=== PATIENT | female | born 1930 | race Caucasian/White ===

== ENCOUNTER 2017-08-23 22:18 | Observation (INO) | payer MEDICARE, OTHER ==
[~2017-08-23] VITALS: Ht 152.4 cm; Wt 81.8 kg
[2017-08-23 22:25] VITALS: BP 167/75; PULSE 59; RESP 16; TEMP 98; O2SAT 96
[2017-08-23] MEDS ORDERED: DONE10TA7 PO (22:49)
[2017-08-23] MEDS ORDERED: ATOR20TA15 PO (22:49)
[2017-08-23] MEDS ORDERED: NAME10TA PO (22:49)
[2017-08-23] MEDS ORDERED: CITA10TA4 PO (22:49)
[2017-08-23] MEDS ORDERED: FLUT50SP EACH NARE (22:49)
[2017-08-23] MEDS ORDERED: TYLE325T PO (22:49)
[2017-08-23] MEDS ORDERED: LEVO25TA4 PO (22:49)
[2017-08-23] MEDS ORDERED: ATEN25TA PO (22:49)
[2017-08-23] MEDS ORDERED: VALS1TAB65 PO (22:49)
[2017-08-23] MEDS ORDERED: CLOP75TA PO (22:49)
[2017-08-23] MEDS ORDERED: CEPH-460 PO (22:49)
[2017-08-23] MEDS ORDERED: NORC5TAB PO (22:49)
[2017-08-23 22:51] VITALS: O2SAT 99
--- NOTE | 2017-08-23 23:08 | RADRPT ---
EXAM DATE/TIME: 08/23/2017 22:54 [facility] COMPARISON: No previous studies available for comparison. INDICATIONS : Short of breath. Altered mental status. MEDICAL HISTORY : None. SURGICAL HISTORY : None. ENCOUNTER: Initial ACUITY: 1 day PAIN SCORE: Non-responsive. LOCATION: Bilateral chest FINDINGS: A single view of the chest demonstrates the lungs to be symmetrically aerated without evidence of mas s, infiltrate or effusion. There is mild atelectasis and/or scarring in the left lung base. Mild athe rosclerotic calcifications are present in the aorta. The cardiomediastinal contours are unremarkable . Osseous structures are intact. Partially calcified breast implants are present. CONCLUSION: Mild scarring and/or atelectasis at the left lung base. Benjamin Harrell MD on August 23, 2017 at 23:06 Board Certified Radiologist. This report was verified electronically.
--- NOTE | 2017-08-23 23:09 | PD ---
HPI Chief Complaint: Altered Mental Status Time Seen by Provider: 22:44 Travel History International Travel<30 days: No Contact w/Intl Traveler<30days: No Traveled to known affect area: No History of Present Illness HPI The patient is an 87 year old female who presents to the [facility] emergency department with a history of being last seen normal at approximately 7 PM. The patient is a resident at a local [facility]. The patient has a known history of dementia. The patient ate her dinner and took her nighttime medications and then was sat in front of the television. When the patient was attempted to be awakened to put in bed the patient had a decreased level of consciousness and was difficult to arouse other than with sternal rub. Upon ambulance services arrival the patient was noted to have a blood glucose of 85. The patient was noted to have pinpoint pupils. The patient was given Narcan 2 mg IM with minimal result. The patient is following commands, however she was not verbal prior to arrival. The patient appeared to be drowsy. On arrival , the patient is able to state her name. She had no focal findings on neurologic exam prior to arrival. No other history is able to be obtained from the patient regarding review of systems or for medical history due to her history of dementia and decreased level of consciousness. [facility]LY [facility] Past Medical History Narrative Medical The patient's past medical history is obtained through the electronic medical record and consists of Lewy body dementia, hyperlipidemia, hypertension, prior history of cerebrovascular accident, hypothyroid disorder High Cholesterol: Yes Cerebrovascular Accident: Yes Dementia: Yes (LEWY BODY) Hypertension: Yes Medical other: Yes (CHRONIC KIDNEY DISEASE) Thyroid Disease: Yes (HYPO) Influenza Vaccination: No Past Surgical History Surgical History: Unable to Obtain Social History Alcohol Use: No Tobacco Use: No Substance Use: No Allergies-Medications (Allergen,Severity, Reaction): Coded Allergies: egg (Verified Allergy, Unknown, 08/23/17) Reported Meds & Prescriptions Reported Meds & Active Scripts Active Reported [place] (Hydrocodone-Acetaminophen) 5 Mg-325 Mg Tab 1 Tab PO Q4H PRN Fluticasone Nasal [place] 50 Mcg/Act Naspr 50 Mcg EACH NARE DAILY 50 mcg/spray Tylenol (Acetaminophen) 325 Mg Tab 500 Mg PO Q6H PRN Namenda (Memantine) 10 Mg Tab 10 Mg PO BID Keflex (Cephalexin) 500 Mg Capsule 2,000 Mg PO DAILY PRN Donepezil 10 Mg Tab 10 Mg PO HS Valsartan 160 Mg Tab 160 Mg PO DAILY Levothyroxine (Levothyroxine Sodium) 25 Mcg Tab 25 Mcg PO DAILY Clopidogrel (Clopidogrel Bisulfate) 75 Mg Tab 75 Mg PO DAILY Citalopram (Citalopram Hydrobromide) 10 Mg Tab 10 Mg PO HS Atorvastatin (Atorvastatin Calcium) 20 Mg Tab 20 Mg PO HS Atenolol 25 Mg Tab 25 Mg PO BID Review of Systems ROS Limitations: Poor Historian Neurologic: Positive: Change in Mentation Physical Exam Narrative General: The patient is a well-developed well-nourished female in no acute distress, sitting up with her eyes closed on my arrival to the room. The patient will open her eyes when asked. Head and Neck exam: Head is normocephalic atraumatic. Eyes: Pupils are equal round and reactive to light. Nose: Midline septum with pink mucous membranes Mouth: Dentition unremarkable. Moist mucus membranes. Posterior oropharynx is not erythematous. No tonsillar hypertrophy. Uvula midline. Airway patent. Neck: No palpable lymphadenopathy. No nuchal rigidity. No thyromegaly. Cardiovascular: Regular rate and rhythm without murmurs, gallops, or rubs. Lungs: Clear to auscultation bilaterally. No wheezes, rhonchi, or rales. Abdomen: Soft, without tenderness to palpation in all 4 quadrants of the abdomen. No guarding, rebound, or rigidity. Normal bowel sounds are audible. No tenderness on palpation of McBurney's point. Extremities: No clubbing or cyanosis. The patient has trace pedal edema bilateral lower extremities. 2+ pulses in all 4 extremities. No calf tenderness on palpation. Back: No costovertebral angle tenderness to palpation. Neurologic Exam: Cranial nerves 2-12 were intact on exam. Strength is 5/5 in all 4 extremities. No sensory deficits noted. The patient is oriented to person, however not place , time, or situation. Skin Exam: No rash noted. Intact skin that is warm and dry. Data Data Last Documented VS Vital Signs Date Time Temp Pulse Resp B/P (MAP) Pulse Ox O2 Delivery O2 Flow Rate FiO2 08/23/17 22:51 99 Nasal Cannula 2.00 08/23/17 22:29 16 08/23/17 22:25 98.0 59 167/75 (105) Orders Orders Electrocardiogram (12/5/17 22:44) Complete Blood Count With Diff (08/23/17 22:44) Comprehensive Metabolic Panel (08/23/17 22:44) Creatine Kinase (Cpk) (08/23/17 22:44) Ckmb (Isoenzyme) Profile (08/23/17 22:44) Troponin I (08/23/17 22:44) Prothrombin Time / Inr (Pt) (08/23/17 22:44) Act Partial Throm Time (Ptt) (08/23/17 22:44) Lipase (08/23/17 22:44) Urinalysis - C+S If Indicated (08/23/17 22:44) Magnesium (Mg) (08/23/17 22:44) Ammonia (08/23/17:44) Thyroid Stimulating Hormone (08/23/17 22:44) Chest, Single Ap (08/23/17 22:44) Ct Brain W/O Iv Contrast(Rout) (08/23/17 22:44) Iv Access Insert/Monitor (08/23/17 22:44) Ecg Monitoring (08/23/17 22:44) Oximetry (08/23/17 22:44) Urinary Catheter Insert/Apply (08/23/17 22:44) Drug Screen, Random Urine (08/23/17 22:44) Place In Observation (08/24/17 ) Vital Signs (Adult) Q4H (08/24/17 00:40) Neuro Checks Q4H (08/24/17 00:40) Activity Oob With Assistance (08/24/17 00:40) Water Pipe Installer / Telemetry .CONTINUOUS (08/24/17 00:40) Diet Heart Healthy (08/24/17 Breakfast) Sodium Chloride 0.9% Flush (Ns Flush) (08/24/17 00:45) Sodium Chloride 0.9% Flush (Ns Flush) (08/24/17 09:00) Basic Metabolic Panel (Bmp) (08/25/17 06:00) Complete Blood Count With Diff (08/25/17 06:00) Pt Request For Service (08/24/17 00:40) Case Management Consult (08/24/17 00:40) Naloxone Inj (Narcan Inj) (08/24/17 00:45) Neuro Checks . ORDERED (08/24/17 00:42) Admit Order (Ed Use Only) (08/24/17 00:42) Labs Laboratory Tests Test 08/23/17 23:11 08/23/17 23:22 White Blood Count 6.2 TH/MM3 Red Blood Count 3.66 MIL/MM3 Hemoglobin 11.4 GM/DL Hematocrit 34.3 % Mean Corpuscular Volume 93.6 FL Mean Corpuscular Hemoglobin 31.0 PG Mean Corpuscular Hemoglobin Concent 33.1 % Red Cell Distribution Width 13.6 % Platelet Count 281 TH/MM3 Mean Platelet Volume 8.9 FL Neutrophils (%) (Auto) 55.1 % Lymphocytes (%) (Auto) 27.1 % Monocytes (%) (Auto) 11.9 % Eosinophils (%) (Auto) 5.1 % Basophils (%) (Auto) 0.8 % Neutrophils # (Auto) 3.4 TH/MM3 Lymphocytes # (Auto) 1.7 TH/MM3 Monocytes # (Auto) 0.7 TH/MM3 Eosinophils # (Auto) 0.3 TH/MM3 Basophils # (Auto) 0.1 TH/MM3 CBC Comment DIFF FINAL Differential Comment Prothrombin Time 10.4 SEC Prothromb Time International Ratio 1.0 RATIO Activated Partial Thromboplast Time 25.3 SEC Blood Urea Nitrogen 16 MG/DL Creatinine 1.47 MG/DL Random Glucose 90 MG/DL Total Protein 6.9 GM/DL Albumin 3.3 GM/DL Calcium Level 8.4 MG/DL Magnesium Level 2.2 MG/DL Alkaline Phosphatase 140 U/L Aspartate Amino Transf (AST/SGOT) 23 U/L Alanine Aminotransferase (ALT/SGPT) 18 U/L Total Bilirubin 0.4 MG/DL Sodium Level 138 MEQ/L Potassium Level 4.5 MEQ/L Chloride Level 103 MEQ/L Carbon Dioxide Level 29.7 MEQ/L Anion Gap 5 MEQ/L Estimat Glomerular Filtration Rate 34 ML/MIN Ammonia 32 MCMOL/L Total Creatine Kinase 89 U/L Troponin I LESS THAN 0.02 NG/ML Lipase 180 U/L Thyroid Stimulating Hormone 3rd Gen 2.650 uIU/ML Urine Color YELLOW Urine Turbidity CLEAR Urine pH 6.0 Urine Specific [place] 1.012 Urine Protein NEG mg/dL Urine Glucose (UA) NEG mg/dL Urine Ketones NEG mg/dL Urine Occult Blood NEG Urine Nitrite NEG Urine Bilirubin NEG Urine Urobilinogen 2.0 MG/DL Urine Leukocyte Esterase NEG Urine Squamous Epithelial Cells <1 /hpf Urine Bacteria RARE /hpf Microscopic Urinalysis Comment CULT NOT INDICATED Urine Opiates Screen NEG Urine Barbiturates Screen NEG Urine Amphetamines Screen NEG Urine Benzodiazepines Screen NEG Urine Cocaine Screen NEG Urine Cannabinoids Screen NEG MDM Medical Decision Making Medical Screen Exam Complete: Yes Emergency Medical Condition: Yes Medical Record Reviewed: Yes Interpretation(s) Last Impressions Head CT 08/23/174 Signed Impressions: Service Date/Time: Wednesday, August 23, 2017 22:59 - CONCLUSION: 1. Moderate to severe atrophic change. 2. No evidence of hemorrhage or acute infarction. Benjamin Harrell MD Chest X-Ray 08/23/[id number] Signed Impressions: Service Date/Time: Wednesday, August 23, 2017 22:54 - CONCLUSION: Mild scarring and/or atelectasis at the left lung base. Benjamin Harrell MD Differential Diagnosis Intracranial abnormality, versus hepatic encephalopathy, versus other metabolic encephalopathy, versus infectious process such as a urinary tract infection, versus pneumonia, versus hyponatremic, versus oversedation with medications Narrative Course During the course of the patients emergency department visit, the patients history, examination, and differential diagnosis were reviewed with the patient. The patient was placed on a monitoring manager with oximetry and frequent blood pressure monitoring. The patient had IV access obtained and blood work sent for analysis. The patient had an ECG done on arrival. The patient's ECG reveals a sinus rhythm with a heart rate of 57, QRS duration 86 ms, QTC 436 ms without any acute ST segment changes, T waves are inverted in V1. A chest x- ray was ordered. A CT scan of the brain was ordered. The patients laboratory studies were reviewed and remarkable for a white count of 6.2, hemoglobin 11.4, platelets 281 with 11.9 monocytes, CMP is remarkable for creatinine of 1.47, GFR 34, calcium 8.4, alkaline phosphatase 140, ammonia level XXXII, CPK 89, troponin I less than 0.02, albumin 3.3, lipase 180, TSH 2.65, PT 10.4, PTT 25.3, urine drug screen is negative, urinalysis is unremarkable. Radiology studies were reviewed and remarkable for a chest x-ray that shows mild scarring and/or atelectasis the left lung base, CT scan of the brain shows moderate to severe atrophic change, no evidence of hemorrhage or acute infarction. The patient remains drowsy on examination although she is able to be awakened and does follow commands. The patient will be admitted for observation. I suspect that the patient's symptoms are related to over sedation with medications. The patients results were discussed with the patient, including the plan of care. I explained that further testing and/ or monitoring is indicated based on the patients history, examination, and/ or laboratory findings. Therefore, I recommended admission for additional evaluation. The patient expressed understanding and was agreeable with this plan. The patient was admitted to the hospital in stable condition and sent to a bed under the care of [facility] service. Physician Communication Physician Communication The patient's case including history, pertinent physical examination findings, and laboratory studies were discussed with Dr. Espinal. It was agreed that the patient would be admitted to the [facility] service. Diagnosis Primary Impression: Altered mental status Qualified Codes: R40.0 - Somnolence Admitting Information Admitting Physician Requests: Observation Roseann Stephen MD Aug 23, 2017 23:09
[2017-08-23 23:21] LABS: AUTOMATED NEUTROPHIL # 3.4 TH/MM3 (1.8-7.7); BASOPHIL # 0.1 TH/MM3 (0-0.2); BASOPHIL % 0.8 % (0.0-2.0); EOSINOPHIL # 0.3 TH/MM3 (0-0.4); EOSINOPHIL % 5.1 % (0.0-4.0); HEMATOCRIT 34.3 % (35.0-46.0); HEMO FLAGS DIFF FINAL; LYMPH % 27.1 % (9.0-44.0); LYMPHOCYTE # 1.7 TH/MM3 (1.0-4.8); MEAN CELL VOLUME 93.6 FL (80.0-100.0); MEAN CORPUSCULAR HGB CONC 33.1 % (32.0-36.0); MONO % 11.9 % (0.0-8.0); NEUT % 55.1 % (16.0-70.0); PLATELET COUNT 281 TH/MM3 (150-450); RED BLOOD COUNT 3.66 MIL/MM3 (4.00-5.30); RED CELL DISTRIBUTION WIDTH 13.6 % (11.6-17.2); WHITE BLOOD COUNT 6.2 TH/MM3 (4.0-11.0)
[2017-08-23 23:33] LABS: APTT (PATIENT) 25.3 SEC (24.3-30.1); PROTHROMBIN TIME - PATIENT 10.4 SEC (9.8-11.6)
--- NOTE | 2017-08-23 23:44 | RADRPT ---
EXAM DATE/TIME: 08/23/2017 22:59 [facility] COMPARISON: No previous studies available for comparison. INDICATIONS : Altered mental status. RADIATION DOSE: 44.40 CTDIvol (mGy) MEDICAL HISTORY : Hypertension. Dementia. Stroke. SURGICAL HISTORY : None. ENCOUNTER: Initial ACUITY: 1 day PAIN SCALE: Non-responsive LOCATION: cranial TECHNIQUE: Multiple contiguous axial images were obtained of the head. Using automated exposure control and adj ustment of the mA and/or kV according to patient size, radiation dose was kept as low as reasonably a chievable to obtain optimal diagnostic quality images. DICOM format image data is available electro nically for review and comparison. FINDINGS: CEREBRUM: The ventricles are normal for age with moderate to severe atrophic change with sulcal and ventricular prominence. No evidence of midline shift, mass lesion, hemorrhage or acute infarction. No extra-axi al fluid collections are seen. POSTERIOR FOSSA: The cerebellum and brainstem are intact. The 4th ventricle is midline. The cerebellopontine angle i s unremarkable. EXTRACRANIAL: The visualized portion of the orbits is intact. SKULL: The calvaria is intact. No evidence of skull fracture. CONCLUSION: 1. Moderate to severe atrophic change. 2. No evidence of hemorrhage or acute infarction. Benjamin Harrell MD on August 23, 2017 at 23:42 Board Certified Radiologist. This report was verified electronically.
[2017-08-23 23:47] LABS: BACTERIA, URINE RARE /hpf; BLOOD, URINE NEG (NEG); COMMENT (UR) CULT NOT INDICATED; CULTURE IF INDICATED CULT NOT INDICATED; GLUCOSE,URINE NEG (NEG); KETONE, URINE NEG (NEG); NITRITE,URINE NEG (NEG); SQUAMOUS EPITHELIAL CELL URINE <1 /hpf (0-5); URINE COLOR YELLOW (YELLW/STRAW)
[2017-08-23 23:59] LABS: ALKALINE PHOSPHATASE 140 U/L (45-117); ALT (GPT) 18 U/L (10-53); ANION GAP 5 MEQ/L (5-15); AST (GOT) 23 U/L (15-37); BICARBONATE 29.7 MEQ/L (21.0-32.0); BLOOD UREA NITROGEN 16 MG/DL (7-18); CHLORIDE 103 MEQ/L (98-107); GLOMERULAR FILTRATION RATE 34 ML/MIN (>89); MAGNESIUM 2.2 MG/DL (1.5-2.5); SODIUM (NA) 138 MEQ/L (136-145); TOTAL BILIRUBIN ADULT 0.4 MG/DL (0.2-1.0)
[2017-08-24] VITALS (8 sets, daily range): BP systolic 116–150; BP diastolic 55–67; PULSE 47–57; RESP 16–20; TEMP 97.5–98.3; O2SAT 93–98
[2017-08-24] LABS: CREATINE KINASE 89 U/L (26-192); POTASSIUM 4.5 MEQ/L (3.5-5.1)
[2017-08-24] MEDS ORDERED: SODIUM CHLORIDE 0.9% FLUSH 10 ML FLUSH IV FLUSH PRN (00:45)
[2017-08-24] MEDS ORDERED: NALOXONE HCL 0.4 MG/ML AMP IV PUSH PRN (00:45)
--- NOTE | 2017-08-24 03:04 | HHI.HP ---
[facility] Service [facility] Hospitalists . Primary Care Physician Anne Agrawal MD . Admission Diagnosis AMS . Diagnoses: (1) Encephalopathy (2) Chronic renal insufficiency (3) Anemia Chief Complaint: Patient could not be woken up to go to bed Travel History International Travel<30 Days: No Contact w/Intl Traveler <30 Da: No Traveled to Known Affected Are: No History of Present Illness Written by Homa Arellano, acting as scribe for Dr. Espinal on 08/24/17 at 02:59. Ms. Crawford is an 87-year-old female with a history of chronic kidney disease , hypothyroidism, essential hypertension, hyperlipidemia, TIAs, and Lewy body dementia who presented to the emergency room on 08/23/2017 from [facility] in [place]. The patient is unable to participate medical history, therefore, the history is taken from the medical record. She has never been to this hospital for anything other than routine blood work in the past. According to triage notes, the patient was put in the TV room at 1900 after eating dinner. When the staff tried to awaken her to take her to bed, they could not wake her up. Pupils were pinpoint and Narcan was administered by paramedics. The patient did not respond to Narcan. Blood pressure was 167/75, heart rate 59, respiratory rate 16, and pulse oximetry was 96% on room air. Oral temperature was 98.0. The patient is seen in the CDU. She keeps her eyes closer of the visit. She has pinpoint pupils upon examination. She demonstrates muscular rigidity. She was able to hold her arms in the air. Passive range of motion of her knees was performed. She has some neck stiffness but does not appear painful and is able to be bent about 20-30. Again, she could not be awakened to participate in any of the history taking. Chest x-ray shows mild scarring and or atelectasis at left lung base. Head CT shows moderate to severe atrophic change. No evidence of hemorrhage or acute infarction. Labs are remarkable only for mild renal insufficiency with BUN 16, creatinine 1.47, and estimated GFR 34. TSH is within normal parameters. Urine toxicology screen is negative. Urinalysis is not consistent with UTI. Coagulation profile is normal. Patient has mild anemia on CBC with hemoglobin 11.4 and hematocrit 34.3 but this is not significantly diminished from 2013 labs in the record. Medications are reviewed and are when necessary's include Flonase with no doses given this month since 08-20-2017, Tylenol with no doses given this month since and Erwin 5/325 with noted doses given this month since 08/20/2017 according to the medication administration record from the facility. Chest takes donepezil, had 1 dose of Keflex before a dental appointment on 08 23, Namenda, atenolol, atorvastatin, citalopram, Plavix, levothyroxine, valsartan, and a colon health tablet. . Review of Systems ROS Limitations: Altered Mental Status (unable to obtain due to altered mental status) Past Family Social History Past Medical History Unable to obtain due to patient's altered mental status, records from [facility] reviewed: chronic kidney disease, hypothyroidism, essential hypertension, hyperlipidemia, TIAs, and Lewy body dementia . Past Surgical History Unable to obtain due to patient's altered mental status . Reported Medications Reported Meds & Active Scripts Active Reported Erwin (Hydrocodone-Acetaminophen) 5 Mg-325 Mg Tab 1 Tab PO Q4H PRN Fluticasone Nasal [place] 50 Mcg/Act Naspr 50 Mcg EACH NARE DAILY 50 mcg/spray Tylenol (Acetaminophen) 325 Mg Tab 500 Mg PO Q6H PRN Namenda (Memantine) 10 Mg Tab 10 Mg PO BID Keflex (Cephalexin) 500 Mg Capsule 2,000 Mg PO DAILY PRN Donepezil 10 Mg Tab 10 Mg PO HS Valsartan 160 Mg Tab 160 Mg PO DAILY Levothyroxine (Levothyroxine Sodium) 25 Mcg Tab 25 Mcg PO DAILY Clopidogrel (Clopidogrel Bisulfate) 75 Mg Tab 75 Mg PO DAILY Citalopram (Citalopram Hydrobromide) 10 Mg Tab 10 Mg PO HS Atorvastatin (Atorvastatin Calcium) 20 Mg Tab 20 Mg PO HS Atenolol 25 Mg Tab 25 Mg PO BID . Allergies: Coded Allergies: egg (Verified Allergy, Unknown, 08/23/17) Active Ordered Medications Current Medications Sodium Chloride (NS Flush) 2 ml UNSCH PRN IV FLUSH FLUSH AFTER USING IV ACCESS ; Start 08/24/17 at 00:45 Sodium Chloride (NS Flush) 2 ml BID IV FLUSH ; Start 08/24/17 at 09:00 Naloxone HCl (Narcan Inj) 0.4 mg UNSCH PRN IV PUSH SEE LABEL COMMENTS; Start 08/24/17 at 00:45 Atenolol (Tenormin) 25 mg BID PO ; Start 08/24/17 at 09:00; Status UNV Atorvastatin Calcium (Lipitor) 20 mg HS PO ; Start 08/24/17 at 21:00; Status UNV Clopidogrel Bisulfate (Plavix) 75 mg DAILY PO ; Start 08/24/17 at 09:00; Status UNV Donepezil HCl (Aricept) 10 mg HS PO ; Start 08/24/17 at 21:00; Status UNV Levothyroxine Sodium (Synthroid) 25 mcg DAILY PO ; Start 08/24/17 at 09:00; Status UNV Memantine (Namenda) 10 mg BID PO ; Start 08/24/17 at 09:00; Status UNV Valsartan (Diovan) 160 mg DAILY PO ; Start 08/24/17 at 09:00; Status UNV . Family History Unable to obtain due to patient's altered mental status . Social History Unable to obtain due to patient's altered mental status Physical Exam Vital Signs Vital Signs Date Time Temp Pulse Resp B/P (MAP) Pulse Ox O2 Delivery O2 Flow Rate FiO2 08/24/17 02:22 97.5 55 17 138/63 (88) 97 08/24/17 01:00 57 16 118/55 (76) 96 Room Air 08/23/17 22:51 99 Nasal Cannula 2.00 08/23/17 22:29 16 97 Nasal Cannula 2.00 08/23/17 22:25 98.0 59 16 167/75 (105) 96 Physical Exam GENERAL: This is a elderly female patient, in no apparent distress. SKIN: Cool and dry. HEAD: Atraumatic. Normocephalic. EYES: No scleral icterus. No injection or drainage. Pinpoint pupils. ENT: Nose without bleeding, purulent drainage. NECK: Trachea midline. No JVD. CARDIOVASCULAR: Regular rate and rhythm without murmurs, gallops, or rubs. RESPIRATORY: Clear to auscultation. Breath sounds equal bilaterally. No wheezes , rales, or rhonchi. GASTROINTESTINAL: Abdomen soft, non-tender, nondistended. No guarding. MUSCULOSKELETAL: Extremities without clubbing, cyanosis, or edema. No calf tenderness. Muscle rigidity noted, but able to slightly bend neck without apparent discomfort and and lower extremities at knees. Patient was able to hold arms up in the air with her eyes closed. NEUROLOGICAL: She keeps her eyes closer of the visit. She has pinpoint pupils upon examination. She demonstrates muscular rigidity. She was able to hold her arms in the air. Passive range of motion of her knees was performed. She has some neck stiffness but does not appear painful and is able to be bent about 20-30. . Laboratory Laboratory Tests Test 08/23/17 23:11 08/23/17 23:22 White Blood Count 6.2 Red Blood Count 3.66 Hemoglobin 11.4 Hematocrit 34.3 Mean Corpuscular Volume 93.6 Mean Corpuscular Hemoglobin 31.0 Mean Corpuscular Hemoglobin Concent 33.1 Red Cell Distribution Width 13.6 Platelet Count 281 Mean Platelet Volume 8.9 Neutrophils (%) (Auto) 55.1 Lymphocytes (%) (Auto) 27.1 Monocytes (%) (Auto) 11.9 Eosinophils (%) (Auto) 5.1 Basophils (%) (Auto) 0.8 Neutrophils # (Auto) 3.4 Lymphocytes # (Auto) 1.7 Monocytes # (Auto) 0.7 Eosinophils # (Auto) 0.3 Basophils # (Auto) 0.1 CBC Comment DIFF FINAL Differential Comment Prothrombin Time 10.4 Prothromb Time International Ratio 1.0 Activated Partial Thromboplast Time 25.3 Blood Urea Nitrogen 16 Creatinine 1.47 Random Glucose 90 Total Protein 6.9 Albumin 3.3 Calcium Level 8.4 Magnesium Level 2.2 Alkaline Phosphatase 140 Aspartate Amino Transf (AST/SGOT) 23 Alanine Aminotransferase (ALT/SGPT) 18 Total Bilirubin 0.4 Sodium Level 138 Potassium Level 4.5 Chloride Level 103 Carbon Dioxide Level 29.7 Anion Gap 5 Estimat Glomerular Filtration Rate 34 Ammonia 32 Total Creatine Kinase 89 Troponin I LESS THAN 0.02 Lipase 180 Thyroid Stimulating Hormone 3rd Gen 2.650 Urine Color YELLOW Urine Turbidity CLEAR Urine pH 6.0 Urine Specific [place] 1.012 Urine Protein NEG Urine Glucose (UA) NEG Urine Ketones NEG Urine Occult Blood NEG Urine Nitrite NEG Urine Bilirubin NEG Urine Urobilinogen 2.0 Urine Leukocyte Esterase NEG Urine Squamous Epithelial Cells <1 Urine Bacteria RARE Microscopic Urinalysis Comment CULT NOT INDICATED Urine Opiates Screen NEG Urine Barbiturates Screen NEG Urine Amphetamines Screen NEG Urine Benzodiazepines Screen NEG Urine Cocaine Screen NEG Urine Cannabinoids Screen NEG Result Diagram: 08/23/17 2311 08/23/17 2311 Imaging Last Impressions Head CT 08/23/172243 Signed Impressions: Service Date/Time: Wednesday, August 23, 2017 22:59 - CONCLUSION: 1. Moderate to severe atrophic change. 2. No evidence of hemorrhage or acute infarction. Benjamin Harrell MD Chest X-Ray 08/23/172243 Signed Impressions: Service Date/Time: Wednesday, August 23, 2017 22:54 - CONCLUSION: Mild scarring and/or atelectasis at the left lung base. Benjamin Harrell MD . Caprini VTE Risk Assessment Caprini VTE Risk Assessment: Mod/High Risk (score >= 2) Caprini Risk Assessment Model Point Value = 1 Point Value = 2 Point Value = 3 Point Value = 5 Age 41-60 Minor surgery BMI > 25 kg/m2 Swollen legs Varicose veins or History of unexplained or recurrent spontaneous Oral contraceptives or hormone replacement Sepsis (< 1 month) Serious lung disease, including pneumonia (< 1 month) Abnormal pulmonary function Acute myocardial infarction Congestive heart failure (< 1 month) History of inflammatory bowel disease Medical patient at bed rest Age 61-74 Arthroscopic surgery Major open surgery (> 45 min) Laparoscopic surgery (> 45 min) Malignancy Confined to bed (> 72 hours) Immobilizing plaster cast Central venous access Age >= 75 History of VTE Family history of VTE Factor V Leiden Prothrombin [id number] Lupus anticoagulant Anticardiolipin antibodies Elevated serum homocysteine Heparin-induced thrombocytopenia Other congenital or acquired thrombophilia Stroke (< 1 month) Elective arthroplasty Hip, pelvis, or leg fracture Acute spinal cord injury (< 1 month) Prophylaxis Regimen Total Risk Factor Score Risk Level Prophylaxis Regimen 0-1 Low Early ambulation 2 Moderate Order ONE of the following: *Sequential Compression Device (SCD) *Heparin 5000 units SQ BID 3-4 Higher Order ONE of the following medications: *Heparin 5000 units SQ TID *Enoxaparin/Lovenox 40 mg SQ daily (WT < 150 kg, CrCl > 30 mL/min) *Enoxaparin/Lovenox 30 mg SQ daily (WT < 150 kg, CrCl > 10-29 mL/min) *Enoxaparin/Lovenox 30 mg SQ BID (WT < 150 kg, CrCl > 30 mL/min) AND/OR *Sequential Compression Device (SCD) 5 or more Highest Order ONE of the following medications: *Heparin 5000 units SQ TID (Preferred with Epidurals) *Enoxaparin/Lovenox 40 mg SQ daily (WT < 150 kg, CrCl > 30 mL/min) *Enoxaparin/Lovenox 30 mg SQ daily (WT < 150 kg, CrCl > 10-29 mL/min) *Enoxaparin/Lovenox 30 mg SQ BID (WT < 150 kg, CrCl > 30 mL/min) AND *Sequential Compression Device (SCD) Assessment and Plan Problem List: (1) Encephalopathy ICD Code: G93.40 - Encephalopathy, unspecified (2) Anemia ICD Code: D64.9 - Anemia, unspecified (3) Chronic kidney disease ICD Code: N18.9 - Chronic kidney disease, unspecified Status: Chronic Assessment and Plan Ms. Crawford is an 87-year-old female with a history of chronic kidney disease , hypothyroidism, essential hypertension, hyperlipidemia, TIAs, and Lewy body dementia who presented to the emergency room on 08/23/2017 from [facility] in [place] for evaluation of altered mental status. Encephalopathy of uncertain origin - Chest x-ray shows mild scarring and or atelectasis at left lung base. - Head CT shows moderate to severe atrophic change. No evidence of hemorrhage or acute infarction. - TSH is within normal parameters. Coagulation profile is normal. - Urine toxicology screen is negative. Urinalysis is not consistent with UTI. - check EEG to evaluate for seizure activity - Continuous cardiac telemetry to monitor for arrhythmias - Neuro checks every 4 hours Anemia, suspect chronic secondary to chronic kidney disease - Patient has mild anemia on CBC with hemoglobin 11.4 and hematocrit 34.3 but this is not significantly diminished from 2013 labs in the record. - repeat CBC in a.m. and follow results Chronic Kidney disease - Labs are remarkable only for mild renal insufficiency with BUN 16, creatinine 1.47, and estimated GFR 34 - stable compared to prior labs - Avoid nephrotoxins - Repeat BMP in a.m. and follow results - monitor trends in renal indices DVT prophylaxis - SCDs/TEDs - verbally ordered Code Status FULL CODE according to [facility] documentation reviewed . Discussed Condition With ED physician and RN . Homa Arellano Aug 24, 2017 03:04
[2017-08-24] MEDS: LEVOTHYROXINE SODIUM 25 MCG TAB PO SCH ×2 (05:10→11:09)
[2017-08-24] MEDS: SODIUM CHLORIDE 0.9% FLUSH 10 ML FLUSH IV FLUSH SCH ×2 (09:00→20:01)
--- NOTE | 2017-08-24 10:23 | EKG ---
Date Performed: 08/23/2017 Time Performed: 22:26:57 PTAGE: 87 years EKG: SINUS BRADYCARDIA WITH FIRST DEGREE AV BLOCK ABNORMAL ECG PREVIOUS TRACING : 11/17/2000 09.42 Compared to prior tracing no significant change DOCTOR: Dilip Finch Interpretating Date/Time 08/24/2017 10:23:04
[2017-08-24] MEDS: ATENOLOL 25 MG TAB PO SCH ×2 (11:09→20:00)
[2017-08-24] MEDS: MEMANTINE HCL 10 MG TAB PO SCH ×2 (11:09→20:00)
[2017-08-24] MEDS: CLOPIDOGREL 75 MG TAB PO SCH (11:10)
[2017-08-24] MEDS: VALSARTAN 160 MG TAB PO SCH (11:12)
--- NOTE | 2017-08-24 13:54 | MG ---
cc: MAHNAZ MILLER MD, TWETHIDA MD Lab No: Date: 08/24/2017 : 1930 Sex: F REFERRING PHYSICIAN Dr. Espinal. MEDICAL HISTORY Stroke, dementia, chronic kidney disease, hypothyroidism. Admitted for decreased level of consciousness, difficult to arouse, blood glucose 85, pinpoint pupils, nonverbal. MEDICATIONS Synthroid, Atenolol, Plavix, melatonin, Diovan. DESCRIPTION At the beginning of the recording the background activity was 89 Hz alpha located posteriorly superimposed by excessive beta activity. There was electrode and movement artifact noted during the recording. The patient transitioned to stage II sleep with slowing of the background and replacement by K-complexes. Hyperventilation was omitted. Photic stimulation did not elicit a driving response. There were no electrographic seizures or epileptiform discharges noted. There is some background slowing intermittent. INTERPRETATION This is an awake, drowsy and asleep EEG. The background slowing may indicate an encephalopathic pattern that may be related to medication effect or metabolic etiology. Beta activity is a nonspecific finding that may be related to medication adverse effect like benzodiazepines or barbiturates. There were no electrographic seizures or epileptiform discharges noted. Clinical correlation is recommended. Mahnaz Miller MD RGO/KISHORE /1:24 PM /1:36 PM
[2017-08-24] MEDS ORDERED: ATORVASTATIN 20 MG TAB PO SCH (21:00)
[2017-08-24] MEDS ORDERED: DONEPEZIL HCL 5 MG TAB PO SCH (21:00)
[2017-08-25 00:56] VITALS: BP 110/62; PULSE 74; RESP 18; TEMP 97.9; O2SAT 94
[2017-08-25 04:43] VITALS: BP 158/68; PULSE 58; RESP 18; TEMP 97.8; O2SAT 97
[2017-08-25] MEDS: LEVOTHYROXINE SODIUM 25 MCG TAB PO SCH (05:04)
[2017-08-25 07:37] LABS: AUTOMATED NEUTROPHIL # 4.9 TH/MM3 (1.8-7.7); BASOPHIL # 0.1 TH/MM3 (0-0.2); BASOPHIL % 1.7 % (0.0-2.0); EOSINOPHIL # 0.3 TH/MM3 (0-0.4); EOSINOPHIL % 3.8 % (0.0-4.0); HEMATOCRIT 33.7 % (35.0-46.0); HEMO FLAGS DIFF FINAL; LYMPH % 18.5 % (9.0-44.0); LYMPHOCYTE # 1.4 TH/MM3 (1.0-4.8); MEAN CELL VOLUME 93.3 FL (80.0-100.0); MEAN CORPUSCULAR HEMOGLOBIN 31.7 PG (27.0-34.0); MEAN CORPUSCULAR HGB CONC 33.9 % (32.0-36.0); MONO % 11.1 % (0.0-8.0); NEUT % 64.9 % (16.0-70.0); PLATELET COUNT 260 TH/MM3 (150-450); RED BLOOD COUNT 3.61 MIL/MM3 (4.00-5.30); RED CELL DISTRIBUTION WIDTH 13.2 % (11.6-17.2); WHITE BLOOD COUNT 7.5 TH/MM3 (4.0-11.0)
[2017-08-25 07:57] VITALS: BP 153/68; PULSE 51; RESP 20; TEMP 98.4; O2SAT 94
[2017-08-25 07:57] LABS: BICARBONATE 27.9 MEQ/L (21.0-32.0); POTASSIUM 4.4 MEQ/L (3.5-5.1)
[2017-08-25 08:00] VITALS: PULSE 51
[2017-08-25] MEDS: CLOPIDOGREL 75 MG TAB PO SCH (09:53)
[2017-08-25] MEDS: SODIUM CHLORIDE 0.9% FLUSH 10 ML FLUSH IV FLUSH SCH (09:53)
[2017-08-25] MEDS: VALSARTAN 160 MG TAB PO SCH (09:53)
[2017-08-25] MEDS: ATENOLOL 25 MG TAB PO SCH (09:54)
[2017-08-25] MEDS: MEMANTINE HCL 10 MG TAB PO SCH (09:54)
[2017-08-25 11:51] VITALS: BP 166/72; PULSE 56; RESP 20; TEMP 98.1; O2SAT 94
--- NOTE | 2017-08-25 12:05 | HHI.PR ---
Subjective Remarks The patient complained of generalized weakness. She reported no pain. She says she has been eating well. She is currently breathing comfortably. Discussed with nursing and her daughter over the phone. Objective Vitals Vital Signs Date Time Temp Pulse Resp B/P (MAP) Pulse Ox O2 Delivery O2 Flow Rate FiO2 08/25/17 11:51 98.1 56 20 166/72 (103) 94 08/25/17 07:57 98.4 51 20 153/68 (96) 94 08/25/17 04:43 97.8 58 18 158/68 (98) 97 08/25/17 00:56 97.9 74 18 110/62 (78) 94 08/24/17 20:46 47 08/24/17 20:14 98.3 52 18 116/57 (76) 93 08/24/17 15:15 98.2 50 16 119/56 (77) 96 I/O 08/24/17 08/24/17 08/24/17 08/25/17 08/25/17 08/25/17 06:59 14:59 22:59 06:59 14:59 22:59 Intake Total 400 ml Output Total 850 ml 600 ml Balance -850 ml -200 ml Intake Oral 400 ml Output Urine Total 850 ml 600 ml # Voids 5 # Bowel Movements 0 Result Diagram: 08/25/1770408/25/17704 Imaging Last Impressions Head CT 08/23/172243 Signed Impressions: Service Date/Time: Wednesday, August 23, 2017 22:59 - CONCLUSION: 1. Moderate to severe atrophic change. 2. No evidence of hemorrhage or acute infarction. Benjamin Harrell MD Chest X-Ray 08/23/172243 Signed Impressions: Service Date/Time: Wednesday, August 23, 2017 22:54 - CONCLUSION: Mild scarring and/or atelectasis at the left lung base. Benjamin Harrell MD Objective Remarks GENERAL: This is a elderly female patient, in no apparent distress. SKIN: Cool and dry. HEAD: Atraumatic. Normocephalic. EYES: No scleral icterus. No injection or drainage. Pinpoint pupils. ENT: Nose without bleeding, purulent drainage. NECK: Trachea midline. No JVD. CARDIOVASCULAR: Regular rate and rhythm without murmurs, gallops, or rubs. RESPIRATORY: Clear to auscultation. Breath sounds equal bilaterally. No wheezes , rales, or rhonchi. GASTROINTESTINAL: Abdomen soft, non-tender, nondistended. No guarding. MUSCULOSKELETAL: Extremities without clubbing, cyanosis, or edema. NEUROLOGICAL: Awake and alert. Strength is symmetrical in the upper and lower extremities. PSYCH: Mood and affect appropriate. Medications and IVs Current Medications Medications (Trade) Dose Ordered Sig/Melanie Route Start Time Stop Time Status Last Admin (NS Flush) 2 ml UNSCH PRN IV FLUSH 08/24/17 00:45 (NS Flush) 2 ml BID IV FLUSH 08/24/17 09:00 08/25/17 09:53 (Narcan Inj) 0.4 mg UNSCH PRN IV PUSH 08/24/17 00:45 (Tenormin) 25 mg BID PO 08/24/17 09:00 08/25/17 09:54 (Lipitor) 20 mg HS PO 08/24/17 21:00 08/24/17 20:00 (Plavix) 75 mg DAILY PO 08/24/17 09:00 08/25/17 09:53 (Aricept) 10 mg HS PO 08/24/17 21:00 08/24/17 20:00 (Synthroid) 25 mcg DAILY@0600 PO 08/24/17 06:00 08/25/17 05:04 (Namenda) 10 mg BID PO 08/24/17 09:00 08/25/17 09:54 (Diovan) 160 mg DAILY PO 08/24/17 09:00 08/25/17 09:53 A/P Problem List: (1) Encephalopathy ICD Code: G93.40 - Encephalopathy, unspecified (2) Anemia ICD Code: D64.9 - Anemia, unspecified (3) Chronic kidney disease ICD Code: N18.9 - Chronic kidney disease, unspecified Status: Chronic Assessment and Plan Ms. Crawford is an 87-year-old female with a history of chronic kidney disease , hypothyroidism, essential hypertension, hyperlipidemia, TIAs, and Lewy body dementia who presented to the emergency room on 08/23/2017 from [facility] in [place] for evaluation of altered mental status. Encephalopathy St/ dementia. Chest x-ray shows mild scarring and or atelectasis at left lung base. Head CT shows moderate to severe atrophic change; No evidence of hemorrhage or acute infarction. TSH is within normal parameters. Coagulation profile is normal. Urine toxicology screen is negative. Urinalysis is not consistent with UTI. EEG may indicate an encephalopathic pattern. - Neuro checks every 4 hours. - continue home meds. - Outpatient follow-up with neurology for her progressive dementia. Anemia Suspect chronic secondary to chronic kidney disease. Stable. - follow up as needed. Chronic Kidney disease Stable compared to baseline. - Avoid nephrotoxins PPx: SCDs Discharge Planning D/c to SNF Benjamin Kapoor DO Aug 25, 2017 12:05
--- NOTE | 2017-08-25 12:21 | HHI.DCPOC ---
Discharge Care Plan Diagnosis: (1) Lewy body dementia (2) Chronic kidney disease (3) Anemia (4) Encephalopathy Goals to Promote Your Health * To prevent worsening of your condition and complications * To maintain your health at the optimal level Directions to Meet Your Goals Take your medications as prescribed Follow your dietary instruction Follow activity as directed Keep your appointments as scheduled Take your immunizations and boosters as scheduled If your symptoms worsen call your PCP, if no PCP go to Urgent Care Center or Emergency Room Smoking is Dangerous to Your Health. Avoid second hand smoke Call the 24-hour hour crisis hotline for domestic abuse at Benjamin Kapoor DO Aug 25, 2017 12:21
[2017-08-25 15:33] VITALS: BP 164/69; PULSE 53; RESP 19; TEMP 99.5; O2SAT 94
== END 2017-08-25 18:23 | disposition home or self-care (01) ==
LOC: NEPE 22:18 → NEDA 08-24 00:43 → NEPHCDU 08-24 02:11
PROVIDERS: ADMIT Hospitalist; ATTEND Hospitalist
DX: G93.40 Encephalopathy, unspecified (principal); D64.9 Anemia, unspecified; I12.9 Hypertensive chronic kidney disease with stage 1 through stage 4 chronic kidney disease, or unspecified chronic kidney disease; N18.9 Chronic kidney disease, unspecified; F02.80 Dementia in other diseases classified elsewhere, unspecified severity, without behavioral disturbance, psychotic disturbance, mood disturbance, and anxiety; G31.83 Neurocognitive disorder with Lewy bodies; E78.5 Hyperlipidemia, unspecified; E03.9 Hypothyroidism, unspecified; R79.1 Abnormal coagulation profile; R94.31 Abnormal electrocardiogram [ECG] [EKG]; Z86.73 Personal history of transient ischemic attack (TIA), and cerebral infarction without residual deficits; Z79.899 Other long term (current) drug therapy
CPT/HCPCS: 51702; 70450; 71010; 76937; 80048; 80053; 80307; 81001; 82140; 82550; 83690; 83735; 84443; 84484; 85025; 85610; 85730; 93005; 95819; 97162; 99285; G0378; G8987; G8988